=== PATIENT | female | born 1985 | race Caucasian/White ===

== ENCOUNTER 2018-01-15 19:53 | Emergency (ER) | payer OTHER ==
[2018-01-15] MEDS ORDERED: Fosphenytoin 500 MG.PE/10 ML SDV ONE (20:05)
[2018-01-15] MEDS ORDERED: LORazepam 2 MG/ML SDV ONE (20:05)
[2018-01-15] MEDS ORDERED: Ondansetron 4 MG/2 ML SDV ONE ×2 (20:05→20:31)
[2018-01-15] MEDS ORDERED: [UNRECOGNIZED DRUG - OTHER] IV ONE (20:21)
[2018-01-15] MEDS ORDERED: SODIUM CHLORIDE IV ONE (20:21)
[2018-01-15] MEDS ORDERED: FOSPHENYTOIN IV ONE (20:21)
[2018-01-15] MEDS ORDERED: LORazepam 2 MG/ML SDV IM ONE (20:23)
[2018-01-15] MEDS ORDERED: Sodium Chloride 0.9% 1,000 ML IV SCH (20:30)
[2018-01-15] MEDS ORDERED: Ondansetron 4 MG/2 ML SDV IVPUSH ONE (20:32)
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
--- NOTE | 2018-01-16 10:45 | CT ---
DATE OF SERVICE: 01/15/18 CLINICAL DATA: seizure UNENHANCED BRAIN CT: Multislice acquisition through the brain without IV contrast was performed. Comparison is made to a prior exam dated 02/08/2014. 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 No masses or mass effect. No intracranial hemorrhage. No evidence of acute or subacute infarct. No osseous abnormalities. IMPRESSION: Incomplete exam. No acute abnormalities noted. Repeat exam should be considered. [id number] [facility]
== END 2018-01-15 21:20 ==
LOC: MERGE 19:53 → LB.ED 19:53
DX: S09.90XA Unspecified injury of head, initial encounter (principal); R29.818 Other symptoms and signs involving the nervous system; Z88.8 Allergy status to other drugs, medicaments and biological substances; Z88.5 Allergy status to narcotic agent; Z79.899 Other long term (current) drug therapy; W18.00XA Striking against unspecified object with subsequent fall, initial encounter
CPT/HCPCS: 36415; 51702; 70450; 80053; 80307; 83735; 84100; 85025; 93005; 96365; 96372; 96375; 99291; J2060; J2405; J7040; Q2009; J7030

== ENCOUNTER 2019-08-10 18:53 | Observation (INO) | payer BC ==
[2019-08-10] MEDS ORDERED: EPINEPHrine 1 MG/ML SDV IM ONE (18:55)
[2019-08-10] MEDS ORDERED: predniSONE 10 MG Tab ONE (19:00)
[2019-08-10] MEDS ORDERED: methylPREDNISolone Sodium Succinate 125 MG/2 ML SDV IVPUSH ONE (19:04)
[2019-08-10] MEDS ORDERED: diphenhydrAMINE 50 MG/ML SDV IVPUSH ONE (19:05)
[2019-08-10] MEDS ORDERED: Ranitidine 50 MG/2 ML SDV IV STA (19:06)
[2019-08-10] MEDS ORDERED: Sodium Chloride 0.9% 1,000 ML IV ONE (19:08)
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
[2019-08-10] MEDS ORDERED: Ondansetron 4 MG/2 ML SDV ONE (20:07)
[2019-08-10] MEDS ORDERED: Ondansetron 4 MG/2 ML SDV IVPUSH PRN (20:11)
[2019-08-10] MEDS ORDERED: diphenhydrAMINE 25 MG Cap PO PRN (20:12)
[2019-08-10] MEDS ORDERED: ALPRAZolam 0.25 MG Tab PO PRN (20:14)
[2019-08-10] MEDS ORDERED: Sodium Chloride 0.9% with KCl 1,000 ML IV SCH (20:15)
[2019-08-10] MEDS: LORazepam 2 MG/ML SDV IVPUSH PRN (21:54)
[2019-08-11] MEDS: LORazepam 2 MG/ML SDV IVPUSH PRN (02:16)
[2019-08-11] MEDS ORDERED: methylPREDNISolone Sodium Succinate 125 MG/2 ML SDV IVPUSH ONE (08:00)
--- NOTE | 2019-08-11 10:20 | PCM.DCSUM1 ---
Discharge Summary - Hospital Course Free Text/Narrative:: Pt presented to emergency room with acute bee sting reaction. Pt did receive EpiPen in the emergency room. She continued to have shortness of breath and spreading skin rash. She was given solumedrol 125mg IV with IV benadryl 50mg and zantac 50mg IV. Pts reaction did resolve. Pt's vitals were stable. I did order lab work. her CBC is stable her BMP shows normal renal functions but her potassium was down at 2.7. 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 It was followed by NS with 40meq of Potassium at 150/hr. Pt has had uneventful night. Her potassium today is 4.3 with normal renal function. Plan is to discharge patient today. Prednisone 40mg daily for 2 days to be taken with food. Benadryl 25mg TID and Zantac 150mg BID for next 2 days to block histamine receptors. I have given script for EpiPen too. Followup with her primary care provider next week for recheck. Brief History: Presented to emergency room with bee sting on the foot with shortness of breath and itchy skin rash. Jonathan see H&P for details. Diagnosis: Stroke: No - Discharge Data Discharge Date: 08/11/19 Discharge Disposition: Home, Self-Care 01 Condition: Stable - Referral to Home Health Primary Care Physician: PCP None - Discharge Diagnosis/Problem(s) (1) Bee sting reaction SNOMED Code(s): 085470508, [id number] ICD Code: T63.441A - TOXIC EFFECT OF VENOM OF BEES, ACCIDENTAL, INIT Status : Acute Current Visit: Yes Onset Date: 04/04/15 Problem Details: 04/04/15 - Delayed allergic reaction to bee sting. (2) Hypokalemia SNOMED Code(s): 68073483 ICD Code: E87.6 - HYPOKALEMIA Status: Acute Current Visit: Yes - Patient Instructions Diet: Regular Diet as Tolerated Fluid Restriction: 1500 mL Activity: As Tolerated Driving: May Drive Today Showering/Bathing: May Shower - Discharge Plan *PRESCRIPTION DRUG MONITORING PROGRAM REVIEWED*: Not Applicable *COPY OF PRESCRIPTION DRUG MONITORING REPORT IN PATIENT MAYCOL: Not Applicable Home Medications: Home Meds Multivitamin [Multivitamins] 1 each PO DAILY 12/26/17 [History] ALPRAZolam [Alprazolam] 1 mg PO BEDTIME PRN 08/10/19 [History] Patient Handouts: Epinephrine Injection, Prednisone tablets, Bee, Wasp, or Hornet Sting, Adult - Discharge Summary/Plan Comment DC Time >30 min.: Yes Discharge Summary/Plan Comment: Plan is to discharge patient today. Prednisone 40mg daily for 2 days to be taken with food. Benadryl 25mg TID and Zantac 150mg BID for next 2 days to block histamine receptors. I have given script for EpiPen and advised to always carry it with her. Followup with her primary care provider next week for recheck. - General Info Date of Service: 08/11/19 Functional Status: Reports: Pain Controlled, Tolerating Diet, Ambulating, Urinating - Review of Systems General: Denies: Fever, Weakness HEENT: Denies: Sinus Congestion, Rhinitis Pulmonary: Denies: Shortness of Breath, Cough, Sputum, Hemoptysis Cardiovascular: Denies: Chest Pain, Lightheadedness Gastrointestinal: Denies: Abdominal Pain, Nausea, Vomiting Musculoskeletal: Denies: Joint Pain, Joint Swelling Skin: Denies: Bruising, Pruritis, Rash 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: Denies: Confusion, Dizziness, Headache, Numbness, Tingling - Patient Data Vitals - Most Recent: Last Vital Signs Temp 98.2 F 08/11/19 08:18 Pulse 78 08/11/19 08:18 Resp 20 08/11/19 08:18 BP 95/66 08/11/19 08:18 Pulse Ox 99 08/11/19 02:00 Weight - Most Recent: 74.48 kg I&O - Last 24 hours: Intake & Output 08/10/19 08/11/19 08/11/19 22:59 06:59 14:59 Intake Total 1000 1999 Balance 1000 1999 Lab Results - Last 24 hrs: Laboratory Results - last 24 hr 08/10/19 08/10/19 08/11/19 Range/Units 19:31 19:31 08:30 WBC 11.2 H D (4.0-11.0) K/uL RBC 4.55 (3.80-5.80) M/uL Hgb 13.2 (11.5-16.5) g/dL Hct 38.8 (37.0-47.0) % MCV 85 (76-96) fL MCH 29.0 (27.0-32.0) pg MCHC 34.0 (31.0-35.0) g/dL RDW 12.8 (11.0-16.0) % Plt Count 365 (150-500) K/uL MPV 10.5 H (6.0-10.0) fL Neut % (Auto) 44.4 L (45.0-70.0) % Lymph % (Auto) 45.2 H (20.0-40.0) % [place] % (Auto) 9.5 (3.0-10.0) % Eos % (Auto) 0.7 L (1.0-5.0) % Baso % (Auto) 0.2 (0.0-0.5) % Neut # (Auto) 4.99 (2.00-7.50) K/uL Lymph # (Auto) 5.08 H (1.50-4.00) K/uL [place] # (Auto) 1.07 H (0.20-0.80) K/uL Eos # (Auto) 0.08 (0.04-0.40) K/uL Baso # (Auto) 0.02 (0.02-0.10) K/uL Sodium 141 142 (136-145) mmol/L Potassium 2.7 L* 4.3 D (3.5-5.1) mmol/L Chloride 104 106 (98-107) mmol/L Carbon Dioxide 23.8 23.7 (21.0-32.0) mmol/L Anion Gap 15.9 H 16.6 H (5.0-15.0) mmol/L BUN 11 D 7 L D (8-26) mg/dL Creatinine 0.99 0.71 D (0.55-1.02) mg/dL Est Cr Clr Drug Dosing 64.52 89.97 mL/min Estimated GFR (MDRD) > 60 > 60 (>60) MLS/MIN BUN/Creatinine Ratio 11.1 9.9 (6-25) Glucose 179 H D 109 H D (74-100) mg/dL Calcium 8.3 L 8.1 L (8.5-10.1) mg/dL Med Orders - Current: Current Medications Alprazolam (Xanax) 1 mg PO BEDTIME PRN PRN Reason: Anxiety Last Admin: 08/10/19 20:50 Dose: 1 mg Diphenhydramine HCl (Benadryl) 25 mg PO Q8H PRN PRN Reason: Rash Last Admin: 08/10/19 22:10 Dose: 25 mg Lorazepam (Ativan) 1 mg IVPUSH BEDTIME PRN PRN Reason: Anxiety Last Admin: 08/11/19 02:16 Dose: 1 mg Ondansetron HCl (Zofran) 4 mg IVPUSH Q8H PRN PRN Reason: Nausea/Vomiting Last Admin: 08/10/19 19:57 Dose: 4 mg Ranitidine HCl (Zantac) 150 mg PO BID [facility], [facility] Last Admin: 08/11/19 08:10 Dose: 150 mg Discontinued Medications Diphenhydramine HCl (Benadryl) 50 mg IVPUSH ONETIME ONE Stop: 08/10/19 19:06 Last Admin: 08/10/19 19:10 Dose: 50 mg Epinephrine HCl (Adrenalin) 0.5 mg IM ONETIME ONE Stop: 08/10/19 18:56 Last Admin: 08/10/19 18:57 Dose: 0.5 mg Sodium Chloride (Normal Saline) 1,000 mls @ 999 mls/hr IV .BOLUS ONE Stop: 08/10/19 20:08 Last Admin: 08/10/19 19:08 Dose: 999 mls/hr Potassium Chloride/Sodium Chloride (Normal Saline With 40 Meq Kcl) 1,000 mls @ 150 mls/hr IV ASDIRECTED FOR[facility]LY [facility], [facility]–1983 Last Admin: 08/10/19 20:25 Dose: 100 mls/hr Methylprednisolone Sodium Succinate (Solu-Medrol) 125 mg IVPUSH ONETIME ONE Stop: 08/10/19 19:05 Last Admin: 08/10/19 19:08 Dose: 125 mg Methylprednisolone Sodium Succinate (Solu-Medrol) 125 mg IVPUSH ONETIME ONE Stop: 08/11/19 08:01 Last Admin: 08/11/19 08:11 Dose: 125 mg Ondansetron HCl (Zofran) Confirm Administered Dose 4 mg .ROUTE .STK-MED ONE Stop: 08/10/19 20:08 Last Admin: 08/10/19 20:16 Dose: Not Given Ranitidine HCl (Zantac) 50 mg IV STAT STA Stop: 08/10/19 19:07 Last Admin: 08/10/19 19:12 Dose: 50 mg Ranitidine HCl (Zantac) Confirm Administered Dose 150 mg .ROUTE .STK-MED ONE Stop: 08/10/19 21:56 Last Admin: 08/10/19 22:57 Dose: Not Given - Exam General: Reports: Alert, Oriented HEENT: Reports: Pupils Equal, Pupils Reactive, EOMI, Mucous Membr. Moist/[place]igg[place] Neck: Reports: Supple Lungs: Reports: Clear to Auscultation, Normal Respiratory Effort Cardiovascular: Reports: Regular Rate, Regular Rhythm GI/Abdominal Exam: Normal Bowel Sounds, Soft, Non-Tender, No Organomegaly, No Distention, No Abnormal Bruit, No Mass, Pelvis Stable Extremities: Normal Inspection, Normal Range of Motion, Non-Tender, No Pedal Edema, Normal Capillary Refill Skin: Reports: Warm, Dry, Intact 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: Reports: No New Focal Deficit
== END 2019-08-11 10:05 | disposition home or self-care (01) ==
LOC: LB.ED 18:53 → LB.MS 20:00 → UNDOADMOB 20:00 → LB.MS 20:08 → UNDODISOB 08-11 10:05
PROVIDERS: ADMIT Family Medicine; ATTEND Family Medicine
DX: T63.441A Toxic effect of venom of bees, accidental (unintentional), initial encounter (principal); R06.00 Dyspnea, unspecified; R49.0 Dysphonia; E87.6 Hypokalemia; Z88.5 Allergy status to narcotic agent; Z88.8 Allergy status to other drugs, medicaments and biological substances; Z91.030 Bee allergy status; Z79.899 Other long term (current) drug therapy
CPT/HCPCS: 36415; 80048; 85025; 96361; 96365; 96366; 96372; 96374; 96375; 96376; 99285-25; A9270-GY; G0378; J0171; J1200; J2060; J2405; J2780; J2930; J3480; J7030

== ENCOUNTER 2021-01-01 20:55 | Emergency (ER) | payer BC ==
[2021-01-01] MEDS: Ketorolac 30 MG/ML SDV IVPUSH ONE (21:59)
[2021-01-01] MEDS: Cefepime 1 GM in Sodium Chloride 0.9% 50 ML IV ONE (22:53)
[2021-01-01] MEDS: traMADol 50 MG Tab PO ONE (23:00)
[2021-01-02] MEDS: diphenhydrAMINE 50 MG/ML SDV IVPUSH ONE (00:25)
[2021-01-02] MEDS: methylPREDNISolone Sodium Succinate 125 MG/2 ML SDV IVPUSH ONE (00:25)
[2021-01-02] MEDS: EPINEPHrine 1 MG/ML SDV SUBCUT ONE (00:25)
[2021-01-02] MEDS: Sodium Chloride 0.9% 1,000 ML IV SCH (01:00)
[2021-01-02] MEDS: Ondansetron 4 MG Tab.DIS PO ONE (01:00)
[2021-01-02] MEDS: LORazepam 2 MG/ML SDV IVPUSH ONE (01:30)
[2021-01-02] MEDS: EPINEPHrine 1:10,000 1 MG/10 ML Syringe IVPUSH ONE (01:35)
[2021-01-02] MEDS: Ondansetron 4 MG/2 ML SDV ONE (01:43)
[2021-01-02] MEDS: fentaNYL 100 MCG/2 ML SDV IVPUSH ONE (02:22)
[2021-01-02] MEDS: Nitroglycerin 0.4 MG Tab.SL SL ONE (02:30)
[2021-01-02] MEDS: Ketamine 200 MG/20 ML MDV IVPUSH ONE (02:42)
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
--- NOTE | 2021-01-03 12:25 | CR ---
Date of Service: 01/01/21 Clinical Data: Coughing/wheezing AP CHEST: No priors. The heart size is normal. The lungs are clear. No pneumothorax. No pleural effusions. No evidence of acute intrathoracic disease. [id number] [facility]
== END 2021-01-02 02:45 ==
LOC: LB.ED 20:55
DX: L03.114 Cellulitis of left upper limb (principal); I80.9 Phlebitis and thrombophlebitis of unspecified site; Z20.822 Contact with and (suspected) exposure to COVID-19; Z91.030 Bee allergy status; Z88.5 Allergy status to narcotic agent; Z88.8 Allergy status to other drugs, medicaments and biological substances
CPT/HCPCS: 36415; 36680; 71045; 80053; 83735; 84484; 85025; 85379; 93005; 96365; 96367; 96372; 96375; 99285; 99285-25; A9270-GY; J0171; J0692; J1200; J1885; J2060; J2930; J3010; J3370; J7030; U0002

== ENCOUNTER 2023-07-09 16:40 | Emergency (ER) | payer SELFPAY ==
[2023-07-09] MEDS ORDERED: Ondansetron 4 MG/2 ML SDV IVPUSH ONE (16:50)
[2023-07-09] MEDS ORDERED: Famotidine 20 MG/2 ML SDV IVPUSH ONE (16:50)
[2023-07-09] MEDS ORDERED: Sodium Chloride 0.9% 1,000 ML IV ONE (16:50)
[2023-07-09] MEDS ORDERED: methylPREDNISolone Sodium Succinate 125 MG/2 ML SDV IVPUSH ONE (16:51)
[2023-07-09] MEDS ORDERED: Sodium Chloride 0.9% 10 ML Syringe FLUSH PRN (18:31)
== END 2023-07-09 19:05 | disposition home or self-care (01) ==
LOC: LB.ED 16:40
DX: T63.441A Toxic effect of venom of bees, accidental (unintentional), initial encounter (principal); Z79.899 Other long term (current) drug therapy; Z88.1 Allergy status to other antibiotic agents; Z88.8 Allergy status to other drugs, medicaments and biological substances
CPT/HCPCS: 96361; 96374; 96375; 99283; J2405; J2930; J3490; J7030

== ENCOUNTER 2025-01-18 19:05 | Emergency (ER) | payer BC ==
[2025-01-18] MEDS: Racepinephrine 2.25% 0.5 ML Neb Soln NEB ONE ×3 (19:20→19:45)
[2025-01-18] MEDS ORDERED: Sodium Chloride 0.9% Inhalation Soln 3 ML Neb INH PRN ×4 (19:23→22:48)
[2025-01-18 20:08] LABS: BASOPHILS ABSOLUTE AUTO 0.05 K/uL (0.02-0.10); BASOPHILS PERCENT AUTO 0.4 % (0.0-0.5); EOSINOPHILS ABSOLUTE AUTO 0.25 K/uL (0.04-0.40); EOSINOPHILS PERCENT AUTO 1.9 % (1.0-5.0); HEMATOCRIT 40.7 % (37.0-47.0); HEMOGLOBIN 13.8 g/dL (11.5-16.5); LYMPHOCYTES ABSOLUTE AUTO 5.68 K/uL (1.50-4.00); LYMPHOCYTES PERCENT AUTO 42.1 % (20.0-40.0); MEAN CORPUSCULAR HEMOGLOBIN 27.7 pg (27.0-32.0); MEAN CORPUSCULAR HGB CONC 33.9 g/dL (31.0-35.0); MEAN CORPUSCULAR VOLUME 82 fL (76-96); MEAN PLATELET VOLUME 10.7 fL (6.0-10.0); MONOCYTES ABSOLUTE AUTO 1.56 K/uL (0.20-0.80); MONOCYTES PERCENT AUTO 11.6 % (3.0-10.0); NEUTROPHILS ABSOLUTE AUTO 5.94 K/uL (2.00-7.50); PLATELET COUNT,PLT 475 K/uL (150-500); RED BLOOD CELL COUNT 4.98 M/uL (3.80-5.80); RED CELL DISTRIBUTION WIDTH 14.6 % (11.0-16.0); WHITE BLOOD CELL COUNT,WBC 13.5 K/uL (4.0-11.0)
[2025-01-18 20:20] LABS: BUN/CREATININE RATIO 6.5 (6-25); C-REACTIVE PROTEIN 6.3 mg/L (<5.0); CALCIUM 8.2 mg/dL (8.5-10.1); CARBON DIOXIDE,CO2 23.1 mmol/L (21.0-32.0); CREATININE 0.92 mg/dL (0.55-1.02); EST CRCL DRUG DOSING (CG) 69.26 mL/min
[2025-01-18] MEDS: Dexamethasone 4 MG/ML 5 ML MDV IVPUSH ONE (20:20)
[2025-01-18 20:22] LABS: ANION GAP 17.9 mmol/L (5.0-15.0)
[2025-01-18 20:23] LABS: INFLUENZA A NAA NEGATIVE (NEGATIVE); INFLUENZA B NAA NEGATIVE (NEGATIVE); RESPIRATORY SYNCYTIAL VIR NAA POSITIVE (NEGATIVE)
[2025-01-18 20:26] LABS: CORONAVIRUS COVID-19 NAA NEGATIVE (NEGATIVE)
[2025-01-18] MEDS: Pantoprazole 40 MG Vial IVPUSH ONE (20:28)
[2025-01-18] MEDS ORDERED: Potassium Chloride Riders 10 MEQ in Premix Bag 1 BAG IV ONE ×2 (20:31→21:45)
[2025-01-18] MEDS: NS + KCl 20mEq/L 1,000 ML IV SCH (20:44)
[2025-01-18] MEDS: Potassium Chloride Riders 10 MEQ in Premix Bag 1 BAG IV SCH (20:49)
[2025-01-18] MEDS: Sodium Chloride 0.9% 1,000 ML IV SCH (20:50)
[2025-01-18] MEDS: Potassium Chloride Riders 50 ML ONE (21:11)
[2025-01-18] MEDS: Ondansetron 4 MG/2 ML SDV IVPUSH ONE (21:16)
[2025-01-18] MEDS ORDERED: Benzonatate 100 MG Cap ONE (22:00)
[2025-01-18 22:08] LABS: BASE EXCESS VENOUS 1.1 mm/L (-2-3); BICARBONATE,VENOUS 27.2 mmol/L (23.0-28.0); PCO2 VENOUS 52.4 mm/Hg (41-51); PH,VENOUS 7.32 (7.31-7.41)
[2025-01-18] MEDS: Benzonatate 100 MG Cap PO PRN (22:32)
[2025-01-18] MEDS ORDERED: Racepinephrine 2.25% 0.5 ML Neb Soln NEB PRN (22:48)
[2025-01-19] MEDS ORDERED: Potassium Chloride Riders 10 MEQ in Premix Bag 1 BAG IV ONE ×2 (00:01)
[2025-01-19] MEDS ORDERED: Racepinephrine 2.25% 0.5 ML Neb Soln NEB PRN (01:13)
[2025-01-19 08:05] LABS: ANION GAP 12.3 mmol/L (5.0-15.0); BUN/CREATININE RATIO 8.7 (6-25); CALCIUM 8.3 mg/dL (8.5-10.1); CARBON DIOXIDE,CO2 24.9 mmol/L (21.0-32.0); CREATININE 0.69 mg/dL (0.55-1.02); EST CRCL DRUG DOSING (CG) 92.34 mL/min; POTASSIUM,K 4.2 mmol/L (3.5-5.1)
== END 2025-01-19 10:52 | disposition home or self-care (01) ==
LOC: LB.ED 19:05 → LB.MS 21:16
PROVIDERS: ADMIT Family Medicine; ATTEND Family Medicine
DX: J20.5 Acute bronchitis due to respiratory syncytial virus (principal); J38.5 Laryngeal spasm; E87.6 Hypokalemia; E66.9 Obesity, unspecified; Z68.30 Body mass index [BMI] 30.0-30.9, adult; Z90.49 Acquired absence of other specified parts of digestive tract; Z90.710 Acquired absence of both cervix and uterus; Z88.1 Allergy status to other antibiotic agents; Z88.5 Allergy status to narcotic agent; Z88.8 Allergy status to other drugs, medicaments and biological substances; Z91.030 Bee allergy status; Z79.899 Other long term (current) drug therapy
CPT/HCPCS: 0241U; 36415; 70490; 80048; 82088; 82803; 83605; 83735; 84132; 84244; 84443; 85025; 86140; 87040; 93005; 93010; 96365; 96366; 96375; 99284; 99285-25; A9270-GY; G0378; J1100; J2405; J2470; J3480; J7030